=== PATIENT | male | born 1975 | race Caucasian/White ===

== ENCOUNTER 2017-06-24 19:04 | Emergency (ER) | payer OTHER, SELFPAY ==
[2017-06-24 19:22] VITALS: BP 153/111; PULSE 105; RESP 18; TEMP 37.3; O2SAT 98
[2017-06-24 19:48] VITALS: BP 154/105; PULSE 116; RESP 18; O2SAT 99
--- NOTE | 2017-06-24 19:57 | DI.RAD.S_ITS ---
PROCEDURE: XR CHEST 2V INDICATIONS: chest pain TECHNIQUE: 2 views of the chest were acquired. COMPARISON: None. FINDINGS: Surgical changes and devices: None. Lungs and pleura: No pleural effusions or pneumothorax. Lungs are clear. Mediastinum: Mediastinal contours are normal. Heart size is normal. Bones and chest wall: No suspicious bony abnormalities. Soft tissues appear unremarkable. IMPRESSION: 1. No acute cardiopulmonary disease. Dictated by: Eliu Steen M.D. on 06/24/2017 at 20:42 Approved by: Eliu Steen M.D. on 06/24/2017 at 20:42
[2017-06-24] MEDS: KETOROLAC 60 MG/2 ML VIAL 15 MG IV (20:29)
[2017-06-24] MEDS: SODIUM CHLORIDE 0.9% 1,000 ML 1000 ML IV ×2 (20:30→21:45)
[2017-06-24 20:32] LABS: Add Manual Diff / Slide Review NO; Basophils Percent Auto 0.6 % (0-2); Eosinophils Percent Auto 0.7 % (2-4); Hematocrit 46.7 % (41-53); Hemoglobin 16.5 g/dL (13.5-17.5); Lymphocytes Percent Auto 10.4 % (25-40); Mean Corpuscular HGB Conc 35.2 % (30-36); Mean Corpuscular Hemoglobin 32.7 PG (26-34); Mean Corpuscular Volume 92.9 fL (80-100); Monocytes Percent Auto 4.8 % (3-14); Neutrophils Absolute Auto 7600 /uL (3000-5900); Neutrophils Percent Auto 83.5 % (50-75); Platelet Count 268 X10^3/uL (150-400); Red Blood Cell Count 5.02 X10^6/uL (4.5-5.9); Red Cell Distribution Width 13.6 % (11.6-14.8); White Blood Cell Count 9.1 X10^3/uL (4.5-11.0)
[2017-06-24 20:34] VITALS: BP 146/101; PULSE 103; RESP 16; O2SAT 98
[2017-06-24 20:35] LABS: Appearance Urine UA CLEAR; Bilirubin Urine UA NEGATIVE (NEGATIVE); Color Urine UA YELLOW; Glucose Urine UA NEGATIVE (Normal); Ketones Urine UA NEGATIVE (NEGATIVE); Leukocyte Esterase Urine UA NEGATIVE (NEGATIVE); Nitrite Urine UA NEGATIVE (NEGATIVE); Occult Blood Urine UA NEGATIVE (Negative); Protein Urine UA NEGATIVE (Negative); Specific Gravity Urine UA 1.015 (1.000-1.035); Urobilinogen Urine UA 0.2 E.U./dL (0.2); pH Urine UA 5.5 (4.5-8.0)
[2017-06-24 20:39] LABS: Urine Amphetamines Negative (Negative); Urine Barbiturates Negative (Negative); Urine Benzodiazepines Negative (Negative); Urine Cocaine Negative (Negative); Urine MDMA Negative (Negative); Urine Methadone Negative (Negative); Urine Methamphetamines Negative (Negative); Urine Morphine/Opi cutoff 2000 Negative (Negative); Urine Oxycodone Negative (Negative); Urine Phencyclidine Negative (Negative); Urine Tetrahydrocannabinol Negative (Negative); Urine Tricyclic Antidepressant Negative (Negative)
[2017-06-24 20:41] LABS: Culture Indicated Urine Cult Not Indicated; Urine Comments Microscopic Normal
[2017-06-24 20:42] LABS: D Dimer < 200 ng/mL (<231)
[2017-06-24 20:43] LABS: Alanine Aminotransferase 51 IU/L (21-72); Albumin 4.5 g/dL (3.5-5.0); Albumin Globulin Ratio 1.4 (1.0-2.8); Alkaline Phosphatase 100 U/L (38-126); Aspartate Aminotransferase 31 IU/L (17-59); BUN Creatinine Ratio 19.2 (6-22); Bilirubin Total 0.6 mg/dL (0.2-1.3); Calcium 9.6 mg/dL (8.4-10.2); Estimated Glomerular Filt Rate > 60.0 mL/min (>60); Ethanol (ETOH) < 10 mg/dL; Globulin 3.3 g/dL (1.7-4.1); Glucose 100 mg/dL (70-100); HEMOLYSIS 32 (0-50); Magnesium 1.8 mg/dL (1.6-2.3); Potassium 4.3 mmol/L (3.4-5.1); Sodium 137 mmol/L (137-145); Total Protein 7.8 g/dL (6.3-8.2)
[2017-06-24 21:10] LABS: Troponin I < 0.012 ng/mL (0.01-0.034)
[2017-06-24 21:17] LABS: Thyroid Stimulating Hormone 0.96 uIU/mL (0.47-4.68)
[2017-06-24 21:30] VITALS: BP 148/94; PULSE 113; RESP 21; O2SAT 95
--- NOTE | 2017-06-24 22:00 | ED.GENADULT ---
HPI - General Adult General Chief complaint: Hypertension Stated complaint: 'needs blood sugar checked' Time Seen by Provider: 06/24/17 19:28 History of Present Illness HPI narrative: HPI 42-year-old male with history of right RCC status post nephrectomy presents complaining of half day of poorly characterized left flank pain and chest pain, denies fevers, dysuria. States that he was in his normal state of health this morning, went golfing and had several beers before having onset of his symptoms. Unable to identify any provoking or relieving symptoms. M/S/F/SocHx notable for: please see HPI; remainder reviewed with patient and in chart. ROS: Negative constitutional, eye, cardiovascular, pulmonary, GI, , MSK, skin, neurologic, psychiatric, endocrine unless noted in the HPI. Exam Gen: Pleasant, non-toxic appearing, resting comfortably. HEENT: NC, AT, PEERL, EOMI. Resp: Clear to auscultation bilaterally, normal work of breathing, no accessory muscle usage. Card: Regular rate and rhythm with no murmurs, rubs, or gallops, extremities warm and well perfused. GI: Non-tender to palpation throughout all quadrants, no focal tenderness at McBurney's point, negative Fam's sign, non-distended, no rebound or guarding. : No suprapubic tenderness to palpation. No left CVA tenderness percussion. MSK: No visible deformities, strength and tone without visually appreciable deficit. No chest wall tenderness to palpation. Skin: Normal color with no visible lesions. Neuro: AO x 3, no facial asymmetry, vision and hearing WNL. Psych: Mood and affect appropriate. Labs / Imaging: EKG: SR 110 bpm, no ST segment elevations or depressions, no LBBB. WBC 9.1, hemoglobin 16.5, d-dimer less than 200, sodium 137, potassium 4.3, creatinine 1.20, magnesium 1.8, troponin (8:15 PM) < 0.012, TSH 0.96 UA - negative ketones, negative nitrate, negative occult blood, negative leukocyte esterase, microscopic normal. UDS negative EtOH < 10 CXR: no acute cardiopulmonary disease. MDM Previous chart, nursing note, labs, imaging, and vitals reviewed. A: 42-year-old male with history of right RCC status post nephrectomy presents complaining of half day of poorly characterized left flank pain and chest pain, denies fevers, dysuria. DDx: UTI, pyelonephritis, ureterolithiasis, pericarditis, myocarditis, PE, ACS, dehydration, electrolyte abnormalities, hyperthyroidism, alcohol intoxication, alcohol withdraw, medication noncompliance (patient takes metoprolol daily), stimulant use, viral syndrome, sepsis. Evaluation: patient well-appearing despite tachycardia of uncertain etiology, chest x-ray clear, UA without evidence of infection, given the exam and urinalysis without hematuria strongly doubt ureterolithiasis. ECG without evidence of characteristic changes of pericarditis or acute ischemia, no evidence of right heart strain, d-dimer negative, given a Wells' (Signs & Sx of DVT - 0, PE is #1 or equally likelihood - 0, HR > 100 - 1.5, immobilization of >=3 days or surgery in last 28 days - 0, prior DVT or PE - 0, hemoptysis - 0, malignancy w/ tx in last 6 mo or palliative - 0) 1.5 is negative d-dimer is appropriate for risk stratification/rule out. Additionally, as the patient is a low pretest probability his d-dimer in conjunction with an unremarkable chest x-ray is appropriate for dissection risk stratification/rule out. Strongly doubt ACS given nonischemic EKG and a negative initial troponin. Patient be appropriate for a 2nd troponin for ACS rule out, however patient (see repeat evaluation below) decline further evaluation. Highly atypical history for unstable angina, HEART (Hx - 0, EKG - 0, age - 0, risk factors - 1, troponin - 0; 30 day MACE: less than or equal to 1.7%) 1. TSH WNL, EtOH nondetectable. UDS negative. No clear evidence of toxidrome on exam. Electrolytes within clinically acceptable limits. No evidence of sepsis by overall exam, absence leukocytosis, or source. ED Course: * 9:50 PM - patient given proximally 1.5 L of IV fluids, mild decrease in resting heart rate, patient states he is feeling much better in decline further evaluation. Note was made of the patient's unexplained tachycardia. The patient was discharged against medical advice. The patient had capacity as they were clinically sober, free from distracting injury, and they appear to have intact insight and judgment and reason and in my opinion have the capacity to make decisions. I am concerned about the patient's unexplained tachycardia and feeling of malaise. At the time of discharge, the patient's evaluation is limited due to the lack of repeat troponin, ED observation, and further evaluation as appropriate. Risks at this time include undiagnosed ACS, myocarditis, viral syndrome, or possibly sepsis. Alternatives discussed with the patient include prompt follow-up with his primary care physician. The patient refused further care in the emergency department but states that he will follow up with his PCP tomorrow. Impression: left flank pain, chest pain, tachycardia, malaise. (please reference below for remainder of encounter information) Related Data Home Medications Medication Instructions Recorded Confirmed hydrochlorothiazide 12.5 mg PO QDAY #0 11/29/16 alprazolam 0.25 mg PO Q12HP PRN #0 01/19/17 gabapentin [Neurontin] 300 mg PO #0 01/23/17 meloxicam 15 mg PO #0 01/23/17 Previous Rx's Medication Instructions Recorded oxycodone-acetaminophen 1 tab PO Q4HP PRN #30 tab 02/21/17 tramadol 50 mg PO Q6HP PRN #30 tab 02/26/17 metoprolol succinate [Toprol XL] 25 mg PO QDAY #90 tab 03/14/17 escitalopram oxalate [Lexapro] 10 mg PO QDAY #30 tab 04/04/17 Allergies Allergy/AdvReac Type Severity Reaction Status Date / Time No Known Allergies Allergy Uncoded 05/16/17 12:48 [facility] Social History Smoking Status: Never smoker Exam Initial Vital Signs Initial Vital Signs: Vital Signs Temperature 99.1 F 06/24/17 19:22 Pulse Rate 105 H 06/24/17 19:22 Respiratory Rate 18 06/24/17 19:22 Blood Pressure 153/111 H 06/24/17 19:22 Pulse Oximetry 98 06/24/17 19:22 Course Orders Ordered: ED Orders 06/24/17 19:57 XR chest 2V Stat 06/24/17 20:15 Complete Blood Count AUTO DIFF Stat Comprehensive Metabolic Panel Stat D Dimer Stat Ethanol (ETOH) Stat Magnesium Stat Thyroid Stimulating Hormone Stat Troponin I Stat 06/24/17 20:28 Rapid Drug Screen, Urine Stat Urinalysis and Microscopic Stat 06/24/17 22:15 Troponin I Urgent Sodium Chloride (Normal Saline 0.9%) 1,000 mls @ 1,000 mls/hr IV BOLUS ONE Stop: 06/24/17 22:35 Discontinued Medications Sodium Chloride (Normal Saline 0.9%) 1,000 mls @ 1,000 mls/hr IV BOLUS ONE Stop: 06/24/17 20:56 Last Admin: 06/24/17 20:30 Dose: 1,000 mls/hr Ketorolac Tromethamine (Toradol) 15 mg IV NOW ONE Stop: 06/24/17 20:26 Last Admin: 06/24/17 20:29 Dose: 15 mg Ketorolac Tromethamine (Toradol) 15 mg IV NOW ONE Stop: 06/24/17 20:26 Last Admin: 06/24/17 20:27 Dose: Not Given Vital Signs - 8 hr 06/24/17 19:22 06/24/17 19:48 06/24/17 20:34 Temperature 99.1 F Pulse Rate 105 H 116 H 103 H Respiratory Rate 18 18 16 Blood Pressure 153/111 H Blood Pressure [Left Arm] 154/105 H 146/101 H Pulse Oximetry 98 99 98 06/24/17 21:30 Temperature Pulse Rate 113 H Respiratory Rate 21 Blood Pressure Blood Pressure [Left Arm] 148/94 H Pulse Oximetry 95 Medical Decision Making Lab Data Result diagrams: 06/24/17 20:15 06/24/17 20:15 Lab Results 06/24/17 06/24/17 06/24/17 Range/Units 20:15 20:15 20:15 WBC 9.1 (4.5-11.0) X10^3/uL RBC 5.02 (4.5-5.9) X10^6/uL Hgb 16.5 (13.5-17.5) g/dL Hct 46.7 (41-53) % MCV 92.9 (80-100) fL MCH 32.7 (26-34) PG MCHC 35.2 (30-36) % RDW 13.6 (11.6-14.8) % Plt Count 268 (150-400) X10^3/uL Neut % (Auto) 83.5 H (50-75) % Lymph % (Auto) 10.4 L (25-40) % [place] % (Auto) 4.8 (3-14) % Eos % (Auto) 0.7 L (2-4) % Baso % (Auto) 0.6 (0-2) % Neut # (Auto) 7600 H (5110-3421) /uL D-Dimer < 200 (<231) ng/mL Sodium 137 (137-145) mmol/L Potassium 4.3 (3.4-5.1) mmol/L Chloride 98.0 (98-107) mmol/L Carbon Dioxide 26.0 (22-32) mmol/L BUN 23.0 H (9-20) mg/dL Creatinine 1.20 (0.66-1.25) mg/dL Estimated GFR > 60.0 (>60) mL/min BUN/Creatinine Ratio 19.2 (6-22) Glucose 100 (70-100) mg/dL Calcium 9.6 (8.4-10.2) mg/dL Magnesium (1.6-2.3) mg/dL Total Bilirubin 0.6 (0.2-1.3) mg/dL AST 31 (17-59) IU/L ALT 51 (21-72) IU/L Alkaline Phosphatase 100 (38-126) U/L Troponin I < 0.012 (0.01-0.034) ng/mL Total Protein 7.8 (6.3-8.2) g/dL Albumin 4.5 (3.5-5.0) g/dL Globulin 3.3 (1.7-4.1) g/dL Albumin/Globulin Ratio 1.4 (1.0-2.8) TSH (0.47-4.68) uIU/mL Urine Color Urine Appearance Urine pH (4.5-8.0) Ur Specific [place] (1.000-1.035) Urine Protein (Negative) Urine Glucose (UA) (Normal) g/dL Urine Ketones (NEGATIVE) Urine Occult Blood (Negative) Urine Nitrate (NEGATIVE) Urine Bilirubin (NEGATIVE) Urine Urobilinogen (0.2) E.U./dL Ur Leukocyte Esterase (NEGATIVE) Ur Culture Indicated? Micro UA Comment Urine Opiates Screen (Negative) Ur Oxycodone Screen (Negative) Urine Methadone Screen (Negative) Ur Barbiturates Screen (Negative) U Tricyclic Antidepress (Negative) Ur Phencyclidine Scrn (Negative) Ur Amphetamines Screen (Negative) U Methamphetamines Scrn (Negative) Ur MDMA Scrn (Ecstasy) (Negative) U Benzodiazepines Scrn (Negative) Urine Cocaine Screen (Negative) U Marijuana (THC) Screen (Negative) Ethyl Alcohol mg/dL 06/24/17 06/24/17 06/24/17 Range/Units 20:15 20:15 20:28 WBC (4.5-11.0) X10^3/uL RBC (4.5-5.9) X10^6/uL Hgb (13.5-17.5) g/dL Hct (41-53) % MCV (80-100) fL MCH (26-34) PG MCHC (30-36) % RDW (11.6-14.8) % Plt Count (150-400) X10^3/uL Neut % (Auto) (50-75) % Lymph % (Auto) (25-40) % [place] % (Auto) (3-14) % Eos % (Auto) (2-4) % Baso % (Auto) (0-2) % Neut # (Auto) (9727-8923) /uL D-Dimer (<231) ng/mL Sodium (137-145) mmol/L Potassium (3.4-5.1) mmol/L Chloride (98-107) mmol/L Carbon Dioxide (22-32) mmol/L BUN (9-20) mg/dL Creatinine (0.66-1.25) mg/dL Estimated GFR (>60) mL/min BUN/Creatinine Ratio (6-22) Glucose (70-100) mg/dL Calcium (8.4-10.2) mg/dL Magnesium 1.8 (1.6-2.3) mg/dL Total Bilirubin (0.2-1.3) mg/dL AST (17-59) IU/L ALT (21-72) IU/L Alkaline Phosphatase (38-126) U/L Troponin I (0.01-0.034) ng/mL Total Protein (6.3-8.2) g/dL Albumin (3.5-5.0) g/dL Globulin (1.7-4.1) g/dL Albumin/Globulin Ratio (1.0-2.8) TSH 0.96 (0.47-4.68) uIU/mL Urine Color Urine Appearance Urine pH (4.5-8.0) Ur Specific [place] (1.000-1.035) Urine Protein (Negative) Urine Glucose (UA) (Normal) g/dL Urine Ketones (NEGATIVE) Urine Occult Blood (Negative) Urine Nitrate (NEGATIVE) Urine Bilirubin (NEGATIVE) Urine Urobilinogen (0.2) E.U./dL Ur Leukocyte Esterase (NEGATIVE) Ur Culture Indicated? Micro UA Comment Urine Opiates Screen Negative (Negative) Ur Oxycodone Screen Negative (Negative) Urine Methadone Screen Negative (Negative) Ur Barbiturates Screen Negative (Negative) U Tricyclic Antidepress Negative (Negative) Ur Phencyclidine Scrn Negative (Negative) Ur Amphetamines Screen Negative (Negative) U Methamphetamines Scrn Negative (Negative) Ur MDMA Scrn (Ecstasy) Negative (Negative) U Benzodiazepines Scrn Negative (Negative) Urine Cocaine Screen Negative (Negative) U Marijuana (THC) Screen Negative (Negative) Ethyl Alcohol < 10 mg/dL 06/24/17 Range/Units 20:28 WBC (4.5-11.0) X10^3/uL RBC (4.5-5.9) X10^6/uL Hgb (13.5-17.5) g/dL Hct (41-53) % MCV (80-100) fL MCH (26-34) PG MCHC (30-36) % RDW (11.6-14.8) % Plt Count (150-400) X10^3/uL Neut % (Auto) (50-75) % Lymph % (Auto) (25-40) % [place] % (Auto) (3-14) % Eos % (Auto) (2-4) % Baso % (Auto) (0-2) % Neut # (Auto) (7861-9478) /uL D-Dimer (<231) ng/mL Sodium (137-145) mmol/L Potassium (3.4-5.1) mmol/L Chloride (98-107) mmol/L Carbon Dioxide (22-32) mmol/L BUN (9-20) mg/dL Creatinine (0.66-1.25) mg/dL Estimated GFR (>60) mL/min BUN/Creatinine Ratio (6-22) Glucose (70-100) mg/dL Calcium (8.4-10.2) mg/dL Magnesium (1.6-2.3) mg/dL Total Bilirubin (0.2-1.3) mg/dL AST (17-59) IU/L ALT (21-72) IU/L Alkaline Phosphatase (38-126) U/L Troponin I (0.01-0.034) ng/mL Total Protein (6.3-8.2) g/dL Albumin (3.5-5.0) g/dL Globulin (1.7-4.1) g/dL Albumin/Globulin Ratio (1.0-2.8) TSH (0.47-4.68) uIU/mL Urine Color Yellow Urine Appearance Clear Urine pH 5.5 (4.5-8.0) Ur Specific [place] 1.015 (1.000-1.035) Urine Protein Negative (Negative) Urine Glucose (UA) Negative (Normal) g/dL Urine Ketones Negative (NEGATIVE) Urine Occult Blood Negative (Negative) Urine Nitrate Negative (NEGATIVE) Urine Bilirubin Negative (NEGATIVE) Urine Urobilinogen 0.2 (0.2) E.U./dL Ur Leukocyte Esterase Negative (NEGATIVE) Ur Culture Indicated? Cult not indicated Micro UA Comment Microscopic normal Urine Opiates Screen (Negative) Ur Oxycodone Screen (Negative) Urine Methadone Screen (Negative) Ur Barbiturates Screen (Negative) U Tricyclic Antidepress (Negative) Ur Phencyclidine Scrn (Negative) Ur Amphetamines Screen (Negative) U Methamphetamines Scrn (Negative) Ur MDMA Scrn (Ecstasy) (Negative) U Benzodiazepines Scrn (Negative) Urine Cocaine Screen (Negative) U Marijuana (THC) Screen (Negative) Ethyl Alcohol mg/dL Discharge Plan Departure Prescriptions: No Action hydrochlorothiazide 12.5 MG capsule 12.5 mg PO QDAY Qty: 0 RF: 0 alprazolam 0.25 MG tablet 0.25 mg PO Q12HP PRNQty: 0 RF: 0 meloxicam 15 MG tablet 15 mg PO Qty: 0 RF: 0 gabapentin [Neurontin] 300 MG capsule 300 mg PO Qty: 0 RF: 0 oxycodone-acetaminophen 5 MG/325 MG tablet 1 tab PO Q4HP PRNQty: 30 RF: 0 tramadol 50 MG tablet 50 mg PO Q6HP PRNQty: 30 RF: 0 metoprolol succinate [Toprol XL] 25 MG tablet extended release 24 hr 25 mg PO QDAY Qty: 90 RF: 3 escitalopram oxalate [Lexapro] 10 MG tablet 10 mg PO QDAY Qty: 30 RF: 3
== END 2017-06-24 22:24 | disposition home or self-care (01) ==
PROVIDERS: Emergency Provider Emergency Medicine; PCP Physician Assistant
DX: R10.9 Unspecified abdominal pain (principal); R07.9 Chest pain, unspecified; R00.0 Tachycardia, unspecified; R53.81 Other malaise
CPT/HCPCS: 71046; 80053; 80305; 80320; 81001; 83735; 84443; 84484; 85025; 85379; 93005; 96361; 96374; 99283; 99285; J1885